=== PATIENT | male | born 1980 | race Caucasian/White ===

== ENCOUNTER 2018-04-20 11:02 | Emergency (ER) | payer MEDICAID ==
[~2018-04-20] VITALS: Ht 172.7 cm; Wt 79.4 kg
[2018-04-20 11:14] VITALS: BP 134/89
[2018-04-20] MEDS ORDERED: LIDOCAINE 1% 500 MG/50 ML VIAL INJ ONE (11:50)
[2018-04-20] MEDS ORDERED: NEOMYCIN/POLYMYXIN/BACITRACIN 0.9 GM/1 PKT TP ONE (11:50)
[2018-04-20] MEDS ORDERED: LIDOCAINE 2% 1000 MG/50 ML VIAL INJ ONE (12:02)
[2018-04-20] MEDS ORDERED: BACITRACIN OINT 500 UNITS/GM PKT TP ONE (13:02)
[2018-04-20 13:56] VITALS: BP 128/88
== END 2018-04-20 13:33 | disposition home or self-care (01) ==
LOC: MED 11:02
DX: S61.212A Laceration without foreign body of right middle finger without damage to nail, initial encounter (principal); I10 Essential (primary) hypertension; W45.8XXA Other foreign body or object entering through skin, initial encounter; Y93.89 Activity, other specified; Y92.89 Other specified places as the place of occurrence of the external cause; Y99.8 Other external cause status
CPT/HCPCS: 12001; 73140; 90715; 96372; 99284; J2001; Q0092